=== PATIENT | male | born 1975 | race Caucasian/White ===

== ENCOUNTER 2020-06-28 09:49 | Emergency (ER) | payer BC, OTHER ==
[~2020-06-28] VITALS: Ht 180.3 cm; Wt 137.0 kg
[2020-06-28] MEDS ORDERED: IV NORMAL SALINE 1,000ML 1,000 ML IV SCH (09:58)
--- NOTE | 2020-06-28 10:03 | PHYS DOC ---
Past History Past Medical History: No Pertinent History Past Surgical History: No Surgical History Smoking: Non-smoker Alcohol Use: Rarely Drug Use: None General Adult EDM: Chief Complaint: SHORTNESS OF BREATH HPI: HPI: Patient is a 45 year old male who presents for evaluation of shortness of air, cough and congestion. Patient has a known positive Covid infection diagnosed about 10 days ago. Patient was monitoring his oxygen sats at home and had 85% room air reading this morning. EMS was called and the paramedics initial sat was 92% on room air. Patient placed on 2 L nasal cannula oxygen and her sats went up to 98%. Mild to moderate tachypnea as well as some conversational dyspnea noted. Patient has no risk factors other than obesity. Review of Systems: Review of Systems: Constitutional: has fever and chills Eyes: Denies change in visual acuity HENT: has nasal congestion or sore throat Respiratory: has cough and shortness of breath Cardiovascular: Denies chest pain or edema GI: Denies abdominal pain, has nausea, no vomiting, bloody stools or diarrhea : Denies dysuria Musculoskeletal: Denies back pain or joint pain, diffuse muscle aches Integument: Denies rash Neurologic: Denies headache, focal weakness or sensory changes Endocrine: Denies polyuria or polydipsia Lymphatic: Denies swollen glands Psychiatric: Denies depression or anxiety Physical Exam: PE: Constitutional: Well developed, well nourished, mild to moderate acute distress. [] HENT: Normocephalic, atraumatic, bilateral external ears normal, oropharynx moist, no oral exudates, nose normal. [] Eyes: PERRL, EOMI, conjunctiva normal, no discharge. [] Neck: Normal range of motion, no tenderness, supple, no stridor. [] Cardiovascular:Heart rate regular rhythm, no murmur [] Lungs & Thorax: Bilateral breath sounds diminished bilaterally, scant wheezing present [] Abdomen: Bowel sounds normal, soft, no tenderness, no masses. [] Skin: Warm, dry, no erythema, no rash. [] Back: No tenderness. [] Extremities: No tenderness, no cyanosis, ROM intact, no edema. [] Neurologic: Alert and oriented, normal motor function, normal sensory function, no focal deficits noted. [] Psychologic: Affect normal, judgement normal, mood normal. [] Current Patient Data: Labs: Laboratory Tests Test 06/28/20 10:02 White Blood Count 4.0 x10^3/uL Red Blood Count 5.05 x10^6/uL Hemoglobin 14.2 g/dL Hematocrit 42.4 % Mean Corpuscular Volume 84 fL Mean Corpuscular Hemoglobin 28 pg Mean Corpuscular Hemoglobin Concent 33 g/dL Red Cell Distribution Width 13.6 % Platelet Count 165 x10^3/uL Segmented Neutrophils % 66 % Band Neutrophils % 10 % Lymphocytes % 18 % Monocytes % 3 % Eosinophils % 3 % Platelet Estimate Adequate D-Dimer (Fide) 0.24 mg/L Sodium Level 136 mmol/L Potassium Level 3.4 mmol/L Chloride Level 100 mmol/L Carbon Dioxide Level 27 mmol/L Anion Gap 9 Blood Urea Nitrogen 9 mg/dL Creatinine 1.1 mg/dL Estimated GFR (Cockcroft-Gault) 73.1 BUN/Creatinine Ratio 8 Glucose Level 226 mg/dL Calcium Level 8.3 mg/dL Total Bilirubin 0.3 mg/dL Aspartate Amino Transf (AST/SGOT) 39 U/L Alanine Aminotransferase (ALT/SGPT) 49 U/L Alkaline Phosphatase 99 U/L Troponin I Quantitative < 0.017 ng/mL NA-Hzj-C-Type Natriuretic Peptide 17 pg/mL Total Protein 7.0 g/dL Albumin 3.2 g/dL Albumin/Globulin Ratio 0.8 Current Medications Medications (Trade) Dose Ordered Sig/Volodymyr Route PRN Reason Start Time Stop Time Status Last Admin Dose Admin Sodium Chloride 1,000 ml @ 1,000 mls/hr Q1H IV 06/28/20 09:58 06/28/20 10:57 DC 06/28/20 10:06 EKG: EKG: EKG showed normal sinus rhythm, rate 85, leftward axis, incomplete right bundle branch block, otherwise unremarkable EKG, not STEMI [] Radiology/Procedures: Radiology/Procedures: [][address] [address] IMAGING REPORT Signed PATIENT: LAURA LANDRY LACCOUNT: [id number] : 1975 LOCATION: ER AGE: 45 SEX: M EXAM STATUS: REG ER ORD. PHYSICIAN: GILBERT,NATALY M DO REASON: short of air, covid + PROCEDURE: PORTABLE CHEST 1V PORTABLE CHEST 1V History: Short of air, covid + Comparison: None. Findings: Single view of the chest is submitted. There is no dependent pleural fluid or pneumothorax. Heart size is within normal limits. There is mild right suprahilar reticular and airspace opacity, also some mild reticular opacity of the right lung base. Impression: 1. There is likely mild right suprahilar infiltrate, also possibly minimally of the right lung base. Electronically signed by: Jeffy Cheatham MD (06/28/2020 10:23 AM) [facility] DICTATED AND SIGNED BY: JEFFY CHEATHAM MD DATE: 06/28/20 1023 CC: PCP,VINCENT; NATALY GILBERT DO ~ Heart Score: HEART Score for Chest Pain: HEART Score for Chest Pain Response (Comments) Value History Slighlty/Non-Suspicious 0 ECG Normal 0 Age < 45 0 Risk Factors 1 or 2 Risk Factors 1 Troponin < Normal Limit 0 Total 1 Risk Factors: Risk Factors: DM, Current or recent (<one month) smoker, HTN, HLP, family history of CAD, obesity. Risk Scores: Score 0 - 3: 2.5% MACE over next 6 weeks - Discharge Home Score 4 - 6: 20.3% MACE over next 6 weeks - Admit for Clinical Observation Score 7 - 10: 72.7% MACE over next 6 weeks - Early Invasive Strategies Course & Med Decision Making: Course & Med Decision Making Pertinent Labs and Imaging studies reviewed. (See chart for details) [] Dragon Disclaimer: Dragon Disclaimer: This electronic medical record was generated, in whole or in part, using a voice recognition dictation system. 1115 stable, feeling better at this time. Off oxygen since arrival and patient sats in the mid 90% range. Patient does not feel significantly short of air at this time. There are infiltrates noted on his x-ray but patient has a known diagnosis of Covid about 10 days ago. Considerations included pulmonary embolus but patient's D-dimer was normal. EKG and troponin were also unremarkable. Patient did not want to be admitted yet 1135 sats dropped to 92-93% on room air but rise when he takes a deep breath. In light of patient's underlying infiltrates we will see about admission. Dr. Arslan will be called to discuss case. He accepted patient for admission. Patient agreed to the admission after he talked to his family members who are nurses at home Departure Departure: Impression: Primary Impression: COVID-19 Additional Impressions: Pulmonary infiltrate Hyperglycemia Disposition: 09 ADMITTED INPT THIS HOSP Admitting Physician: Edith Mcdaniels Condition: STABLE Referrals: PCP,NO (PCP) COVID-19 Assessment COVID-19 Patient Risks: Age 65 or older: No Sign of co-morbidity: Yes Exp to person + for COVID: Yes Exp to PUI: Yes Travel from affected area: No Lower respiratory symptoms: Yes Fever: Yes Other: No PPE Use: Full PPE with N95 mask or PAPR: Yes NATALY GILBERT DO Jun 28, 2020 10:03
--- NOTE | 2020-06-28 10:24 | EKG ---
[address] [address] Test Date: 2020-06-28 Test Time: 10:12:33 Pat Name: LAURA LANDRY Department: Room: Gender: M Clinical Assoc: : 1975 Requested By: NATALY GILBERT Order Number: [id number] Reading MD: Xavier Tran Measurements Intervals [place] Rate: 85 P: 29 WV: 146 QRS: -16 QRSD: 106 T: 17 QT: 346 QTc: 417 Interpretive Statements SINUS RHYTHM LEFTWARD AXIS INCOMPLETE RIGHT BUNDLE BRANCH BLOCK Electronically Signed On 07-11-2020 12:50:57 [employer] by Xavier Tran
--- NOTE | 2020-06-28 10:26 | RAD ---
PORTABLE CHEST 1V History: Short of air, covid + Comparison: None. Findings: Single view of the chest is submitted. There is no dependent pleural fluid or pneumothorax. Heart size is within normal limits. There is mild right suprahilar reticular and airspace opacity, also some mild reticular opacity of the right lung base. Impression: 1. There is likely mild right suprahilar infiltrate, also possibly minimally of the right lung base. Electronically signed by: Kaleb Prasad MD (06/28/2020 10:23 AM) [facility]
[2020-06-28 10:42] LABS: HEMATOCRIT 42.4 % (39.0-53.0); HEMOGLOBIN 14.2 g/dL (13.0-17.5); MEAN CORPUSCULAR HEMOGLOBIN 28 pg (25-35); MEAN CORPUSCULAR VOLUME 84 fL (79-100); PLATELET COUNT 165 x10^3/uL (140-400); RED BLOOD COUNT 5.05 x10^6/uL (4.30-5.70); RED CELL DISTRIBUTION WIDTH 13.6 % (11.5-14.5)
[2020-06-28 10:43] LABS: CALCIUM 8.3 mg/dL (8.5-10.1); CREATININE 1.1 mg/dL (0.7-1.3); GFR 73.1; MEAN CORPUSCULAR HGB CONC 33 g/dL (31-37); POTASSIUM 3.4 mmol/L (3.5-5.1)
[2020-06-28 10:56] LABS: ALBUMIN 3.2 g/dL (3.4-5.0); ALBUMIN/GLOBULIN RATIO 0.8 (1.0-1.7); TOTAL BILIRUBIN 0.3 mg/dL (0.2-1.0)
[2020-06-28 11:03] LABS: % BANDS 10 % (0-9); % EOS 3 % (0-5); % LYMPHS 18 % (24-48); % MONOS 3 % (0-10); % SEGS 66 % (35-66)
[2020-06-28 11:04] LABS: PLT ESTIMATE ADEQUATE (ADEQUATE)
[2020-06-28] MEDS ORDERED: ONDANSETRON PF 4 MG/2 ML VIAL. IVP PRN (12:00)
[2020-06-28 13:31] VITALS: BP 119/73
== END 2020-06-28 13:49 | disposition left against medical advice (07) ==
LOC: ER 09:49 → 1 SOUTH 11:40 → UNDOADMIN 11:40
DX: U07.1 COVID-19 (principal); R91.8 Other nonspecific abnormal finding of lung field; R73.9 Hyperglycemia, unspecified
CPT/HCPCS: 36415; 71045; 80053; 83880; 84484; 85007; 85025; 85379; 93005; 96360; 96361; 99285; J7030